=== PATIENT | female | born 1950 | race African-American/Black ===

== ENCOUNTER 2022-05-12 21:57 | Inpatient (IN) | payer MEDICARE, OTHER ==
[~2022-05-12] VITALS: Ht 165.1 cm; Wt 117.5 kg
--- NOTE | 2022-05-12 22:45 | NUR ---
Xray at bedside
--- NOTE | 2022-05-12 22:48 | NUR ---
Lab at bedside
[2022-05-12] MEDS ORDERED: CHOL400T PO (22:55)
[2022-05-12] MEDS ORDERED: SENN-18 PO (22:55)
[2022-05-12] MEDS ORDERED: OXYB5TAB16 PO (22:55)
[2022-05-12] MEDS ORDERED: MAGN400O6 PO (22:55)
[2022-05-12] MEDS ORDERED: MAGN400C PO (22:55)
[2022-05-12] MEDS ORDERED: BENA20TA9 PO (22:55)
[2022-05-12] MEDS ORDERED: ASPI81TA31 PO (22:55)
[2022-05-12] MEDS ORDERED: AMLO-212 PO (22:55)
[2022-05-12] MEDS ORDERED: IBUP-1955 PO (22:55)
[2022-05-12] MEDS ORDERED: BISA-79 PO (22:55)
[2022-05-12] MEDS ORDERED: CALC-494 PO (22:55)
[2022-05-12] MEDS ORDERED: MAG355OR18 PO (22:55)
[2022-05-12] MEDS ORDERED: ASCO500C18 PO (22:55)
[2022-05-12] MEDS ORDERED: POLY17PO4 PO (22:55)
[2022-05-12] MEDS ORDERED: DIVA-78 PO (22:55)
[2022-05-12] MEDS ORDERED: FOLI1TAB94 PO (22:55)
[2022-05-12] MEDS ORDERED: DOCU250C14 PO (22:55)
[2022-05-12] MEDS ORDERED: ZIPR80CA2 PO (22:55)
[2022-05-12] MEDS ORDERED: MULT-1188 PO (22:55)
[2022-05-12] MEDS ORDERED: HALO2TAB PO (22:55)
[2022-05-12] MEDS ORDERED: BISA10SU61 RC (22:55)
[2022-05-12 22:59] LABS: HEMATOCRIT 39.4 % (31.2-41.9); MEAN CORPUSCULAR VOLUME 86.5 fL (75.5-95.3); PLATELET COUNT (AUTO) 166 K/uL (179-408)
[2022-05-12 23:19] LABS: ETHANOL < 3 MG/DL (0-0)
--- NOTE | 2022-05-12 23:23 | NUR ---
Patient placed on bed meyer to collect UA. Sukhjinder YING geoint analyst.
[2022-05-12 23:24] LABS: EOSINOPHILS % (MANUAL) 1 % (0-8); LYMPHOCYTES % (MANUAL) 52 % (20-40); MONOCYTES % (MANUAL) 12 % (2-10); NEUTROPHILS % (MANUAL) 35 % (42-75)
--- NOTE | 2022-05-12 23:27 | NUR ---
Patient will be admitted to MHU bed 141A
[2022-05-12 23:28] LABS: CARBON DIOXIDE 29 mmol/L (21-32); CHLORIDE 103 mmol/L (98-107); CREATININE 0.6 mg/dL (0.6-1.3); GLUCOSE 119 mg/dL (74-106); UREA NITROGEN, BLOOD 6 mg/dL (7-18)
[2022-05-12 23:33] LABS: ALANINE AMINOTRANSFERASE 9 U/L (14-59); ALKALINE PHOSPHATASE 82 U/L (50-136); ASPARTATE AMINOTRANSFERASE 10 U/L (15-37); BILIRUBIN,DIRECT 0.1 mg/dL (0.0-0.2); BILIRUBIN,TOTAL 0.3 mg/dL (0.2-1.0); TOTAL PROTEIN, SERUM 6.1 g/dL (6.4-8.2)
--- NOTE | 2022-05-12 23:40 | NUR ---
Spoke with Crisis team Yajaira for evaluation. States she will be coming to see patient shortly
[2022-05-12 23:41] LABS: THYROID STIMULATING HORMONE 2.363 mIU/mL (0.358-3.740)
[2022-05-12 23:51] LABS: ACETAMINOPHEN < 10.0 ug/mL (10-30)
--- NOTE | 2022-05-12 23:59 | NUR ---
Patient unable to provide urine at this time.
--- NOTE | 2022-05-13 00:35 | NUR ---
UA sent to lab
[2022-05-13 00:45] LABS: *BILIRUBIN,URIN NEGATIVE (NEGATIVE); *BLOOD, URINE NEGATIVE (NEGATIVE); *CLARITY,URINE CLEAR (CLEAR); *COLOR,URINE YELLOW (YELLOW); *KETONES,URINE NEGATIVE (NEGATIVE); *UROBILINOGEN,URINE 0.2 E.U./dl (NORMAL); LEUKOCYTE ESTERASE ,URINE TRACE (NEGATIVE); NITRITE, URINE NEGATIVE (NEGATIVE); UGLUCOSE NEGATIVE (NEGATIVE)
[2022-05-13 00:58] LABS: *AMPHETAMINE, URINE NEGATIVE (NEGATIVE); *CANNABINOID, URINE NEGATIVE (NEGATIVE); *COCCAINE, URINE NEGATIVE (NEGATIVE); *PHENCYCLIDINE SCREEN,URINE NEGATIVE (NEGATIVE)
--- NOTE | 2022-05-13 02:00 | NUR ---
Yajaira from crisis team evaluating patient at bedside.
[2022-05-13 02:08] LABS: BACTERIA,URINE FEW /HPF (NONE SEEN); RBC,URINE NONE SEEN /HPF (0-3); SQUAMOUS EPITHELIAL CELL,UR MODERATE /HPF (NONE SEEN); YEAST,URINE FEW /HPF (NONE SEEN)
--- NOTE | 2022-05-13 03:29 | NUR ---
Patient medically clear per Dr. Soriano
--- NOTE | 2022-05-13 03:31 | NUR ---
Attempted to give report to MHU nurse. RN not avaliable at this time. Waiting for call back.
--- NOTE | 2022-05-13 04:16 | NUR ---
Report given to MHU nurse
--- NOTE | 2022-05-13 04:40 | NUR ---
Patient taken to MHU via gurney with personal belongings. Patient in stable condition no signs of distress. Jojo YING aware of patients arrival.
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
[2022-05-13] MEDS ORDERED: MAG HYDROX/AL HYDROX/SIMETH 30 ML LIQUID UDC PO PRN (05:15)
[2022-05-13] MEDS ORDERED: MAGNESIUM HYDROXIDE 30 ML LIQUID UDC PO PRN (05:15)
[2022-05-13] MEDS ORDERED: ZOLPIDEM 5 MG TABLET PO PRN (05:15)
[2022-05-13] MEDS ORDERED: ACETAMINOPHEN 650 MG SUPP.RECT RC PRN (05:15)
[2022-05-13 06:18] VITALS: BP 138/91
[2022-05-13 07:55] VITALS: BP 109/49
[2022-05-13] MEDS: risperiDONE 2 MG TABLET PO SCH ×2 (11:06→16:44)
[2022-05-13] MEDS: DIVALPROEX 500 MG TABLET.DR PO SCH ×2 (11:06→20:56)
--- NOTE | 2022-05-13 11:30 | NUR ---
Gps/Patient Care Specialist- Alert, oriented x 3 follows simple directions.Cooperative with the P.T. who evaluated patient this am., was able to seat at the edge of bed. Denies visual hallucination, but claimed had auditory hallucinations at time, no plan to hurt herself. Bladder incontinence , needed total assist with her hygiene. Denies any discomfort
[2022-05-13 18:13] VITALS: BP 96/51
[2022-05-13 21:20] VITALS: BP 108/65
--- NOTE | 2022-05-13 21:55 | NUR ---
RECEIVED REPORT FROM JUDY NOHEMI.
--- NOTE | 2022-05-14 06:59 | NUR ---
REPORT GIVEN TO JUDY YING.
[2022-05-14 08:30] VITALS: BP 92/46
[2022-05-14] MEDS: risperiDONE 2 MG TABLET PO SCH ×2 (08:47→17:28)
[2022-05-14] MEDS: DIVALPROEX 500 MG TABLET.DR PO SCH ×2 (08:47→20:43)
[2022-05-14] MEDS ORDERED: FLUCONAZOLE 100 MG TABLET PO ONE (10:45)
[2022-05-14] MEDS ORDERED: BISACODYL 10 MG SUPP.RECT RC PRN (10:45)
[2022-05-14] MEDS ORDERED: MAGNESIUM HYDROXIDE 30 ML LIQUID UDC PO PRN (10:45)
[2022-05-14] MEDS: NITROFURANTOIN/NITROFURAN MAC 100 MG CAPSULE PO SCH ×2 (11:43→20:43)
--- NOTE | 2022-05-14 16:00 | NUR ---
Gps/Community Fundraiser- denies any visual nor auditory hallucinations. Stayed in bed most of the day, compliant with routine medications , making her simples needs known to the staff, interacts well when engaged .
[2022-05-14 16:31] VITALS: BP 91/49
[2022-05-14] MEDS ORDERED: CALCIUM CARBONATE 500 MG TABLET PO SCH (17:00)
[2022-05-14] MEDS ORDERED: CALCIUM CARBONATE 500 MG TAB.CHEW PO SCH (17:00)
[2022-05-14] MEDS: SENNOSIDES 1 TABLET PO SCH (17:28)
[2022-05-14] MEDS: OXYBUTYNIN CHLORIDE 5 MG TABLET PO SCH (17:29)
[2022-05-14] MEDS: CALCIUM CARBONATE 500 MG TABLET PO SCH (17:29)
[2022-05-14] MEDS: PROTEIN SUPPLEMENT (PROSTAT) 30 ML LIQUID PO SCH (17:30)
[2022-05-14 20:25] VITALS: BP 95/52
--- NOTE | 2022-05-15 05:31 | NUR ---
Received patient in bed, alert able to make needs known, no complain of pain, patient cooperative with medications and care, calm at this time, cont to monitor.
[2022-05-15 08:01] VITALS: BP 110/70
[2022-05-15] MEDS ORDERED: CHOLECALCIFEROL 400 UNITS TABLET PO SCH (09:00)
[2022-05-15] MEDS ORDERED: Medication Not On Formulary EA (Ascorbic Acid (Vitamin C) 500 MG) PO SCH (09:00)
[2022-05-15] MEDS: NITROFURANTOIN/NITROFURAN MAC 100 MG CAPSULE PO SCH ×2 (09:02→20:35)
[2022-05-15] MEDS: SENNOSIDES 1 TABLET PO SCH ×2 (09:03→17:14)
[2022-05-15] MEDS: OXYBUTYNIN CHLORIDE 5 MG TABLET PO SCH ×2 (09:03→17:14)
[2022-05-15] MEDS: ASPIRIN 81 MG TAB.CHEW PO SCH (09:03)
[2022-05-15] MEDS: MAGNESIUM OXIDE 400 MG TABLET PO SCH (09:03)
[2022-05-15] MEDS: CHOLECALCIFEROL 1,000 UNIT TABLET PO SCH (09:03)
[2022-05-15] MEDS: DIVALPROEX 500 MG TABLET.DR PO SCH ×2 (09:03→20:35)
[2022-05-15] MEDS: risperiDONE 2 MG TABLET PO SCH ×2 (09:04→17:14)
[2022-05-15] MEDS: FOLIC ACID 1 MG TABLET PO SCH (09:04)
[2022-05-15] MEDS: MULTIVIT, IRON, MIN NO. 8, FA TABLET PO SCH (09:04)
[2022-05-15] MEDS: ASCORBIC ACID 500 MG TABLET PO SCH (09:05)
[2022-05-15] MEDS: PROTEIN SUPPLEMENT (PROSTAT) 30 ML LIQUID PO SCH ×2 (09:05→17:14)
[2022-05-15] MEDS: MIRALAX 17 GM POWD.PACK PO SCH (09:05)
[2022-05-15] MEDS: CALCIUM CARBONATE 500 MG TABLET PO SCH ×2 (09:07→17:14)
--- NOTE | 2022-05-15 14:41 | NUR ---
GPS: Nursing Notes: Thought Disorder: Patient is awake and responding to her name, impaired judgment, redirected during shift, believes that she is leaving today, stated "MY son is coming to pick me up....I am leaving today...", angry affect, social insurance analyst explained patient that she is not leaving today, believes that the psychiatrist never talk to her, forgetful, unable to formulate a viable plan for self care, continue to monitor for safety, continue with treatment plan.
[2022-05-15 16:32] VITALS: BP 98/58
[2022-05-15 19:53] VITALS: BP 110/60
[2022-05-15] MEDS: LORAZEPAM 1 MG TABLET PO PRN (20:35)
--- NOTE | 2022-05-16 03:27 | NUR ---
Received patient at the start of the shift, talking to herself and responding to internal stimuli. The patient verbalized to this ad writer that " I have this person named Clementine inside me. She is always keeping me from talking to my family by taking my phone away. She has it right now. " The patient was anxious and paranoid, also confused about how long she has been in this hospital. Reassurance and reorientation provided. Total assistance 2-3 people needed with changing this patient and providing PM care. Despite encouragement, the patient would not assist with repositioning and turning. This ad writer helped the patient with calling her daughter. A Mepilex was applied to the patients coccyx as well as z guard, after cleaning her up as needed. Safety Stratiges are in place and continuing to provided assist with ADL, too monitor for anxiety and disorientation, and prevent any further skin breakdown from what was present upon admission.
[2022-05-16 08:00] VITALS: BP 113/66
[2022-05-16] MEDS: SENNOSIDES 1 TABLET PO SCH ×2 (09:26→16:46)
[2022-05-16] MEDS: CHOLECALCIFEROL 1,000 UNIT TABLET PO SCH (09:26)
[2022-05-16] MEDS: ASPIRIN 81 MG TAB.CHEW PO SCH (09:26)
[2022-05-16] MEDS: MIRALAX 17 GM POWD.PACK PO SCH (09:26)
[2022-05-16] MEDS: MAGNESIUM OXIDE 400 MG TABLET PO SCH (09:26)
[2022-05-16] MEDS: NITROFURANTOIN/NITROFURAN MAC 100 MG CAPSULE PO SCH ×2 (09:26→20:35)
[2022-05-16] MEDS: MULTIVIT, IRON, MIN NO. 8, FA TABLET PO SCH (09:26)
[2022-05-16] MEDS: DIVALPROEX 500 MG TABLET.DR PO SCH ×2 (09:27→20:35)
[2022-05-16] MEDS: ASCORBIC ACID 500 MG TABLET PO SCH (09:27)
[2022-05-16] MEDS: PROTEIN SUPPLEMENT (PROSTAT) 30 ML LIQUID PO SCH ×2 (09:27→16:46)
[2022-05-16] MEDS: CALCIUM CARBONATE 500 MG TABLET PO SCH ×2 (09:27→16:47)
[2022-05-16] MEDS: OXYBUTYNIN CHLORIDE 5 MG TABLET PO SCH ×2 (09:27→16:46)
[2022-05-16] MEDS: FOLIC ACID 1 MG TABLET PO SCH (09:27)
[2022-05-16] MEDS: risperiDONE 2 MG TABLET PO SCH ×2 (10:04→16:46)
[2022-05-16] MEDS: REMEDY ESSENTIAL ZINC PASTE 113 GM TOP SCH ×2 (11:42→20:36)
--- NOTE | 2022-05-16 15:30 | NUR ---
LANCE Initial Discharge Note: Pt currently resides at [facility] ([phone]) located at [address] [place] [address]. Per pt's daughter, Rkiki ([phone]), she would like the pt to return there upon discharge. If pt is not welcome back upon discharge, Rikki is agreeable to additional snf's recommended by the psychiatrist. LANCE will continue to work with pt, her daughter, Rikki, her son, Tate ([phone]), and to ensure a safe and proper discharge plan.
--- NOTE | 2022-05-16 15:31 | NUR ---
SW Family Contact: Per pt's daughter, Rikki ([phone]), she would like the pt to return there upon discharge. If pt is not welcome back upon discharge, Rikki is agreeable to additional snf's recommended by the psychiatrist.
--- NOTE | 2022-05-16 15:59 | NUR ---
Firearms Report: Floriculture Teacher completed and submitted a [employer] firearms report for 5150 grave disability certifications. A copy of report has been placed in patient chart.
[2022-05-16 16:33] VITALS: BP 116/62
--- NOTE | 2022-05-16 17:24 | NUR ---
GPS: Nursing Notes: Thought Disorder: Patient is awake and responding to her name, cooperative with nursing care, compliant with her medications, having AH, stated "Yes, Clementine talks to me... She follows me everywhere sometime.... She bothers me at night..", when asked who is Clementine? stated "She is everything... ", unable to formulate a viable plan for self care, A/Ox3, poor insight, impaired judgment, continue to monitor for safety, total care, but able to eat by self, continue with treatment plan.
[2022-05-16 20:01] VITALS: BP 108/70
[2022-05-16] MEDS: LORAZEPAM 1 MG TABLET PO PRN (20:35)
--- NOTE | 2022-05-17 04:46 | NUR ---
There are not many changes from the previous manager night. The patient continues to not help the staff with her ADLs and care, she needs to be turned and repositioned frequently and is incontinent. Monitoring of skin breakdown is ongoing. The patient is pleasant but does not show any insight to the possible complications of being completely immobile. Encouragement to move and get out of bed has not been effective. Some paranoia is noted and the patient has been responding to internal stimuli during the evening. Safety Stratiges remain in place at this time, staff is continuing with the plan of care .
[2022-05-17 08:00] VITALS: BP 127/75
[2022-05-17] MEDS: CALCIUM CARBONATE 500 MG TABLET PO SCH ×2 (10:20→17:48)
[2022-05-17] MEDS: CHOLECALCIFEROL 1,000 UNIT TABLET PO SCH (10:20)
[2022-05-17] MEDS: ASCORBIC ACID 500 MG TABLET PO SCH (10:21)
[2022-05-17] MEDS: risperiDONE 2 MG TABLET PO SCH ×2 (10:21→17:44)
[2022-05-17] MEDS: SENNOSIDES 1 TABLET PO SCH ×2 (10:23→17:48)
[2022-05-17] MEDS: ASPIRIN 81 MG TAB.CHEW PO SCH (10:23)
[2022-05-17] MEDS: REMEDY ESSENTIAL ZINC PASTE 113 GM TOP SCH ×2 (10:24→20:55)
[2022-05-17] MEDS: DIVALPROEX 500 MG TABLET.DR PO SCH ×2 (10:28→20:55)
[2022-05-17] MEDS: MIRALAX 17 GM POWD.PACK PO SCH (10:28)
[2022-05-17] MEDS: PROTEIN SUPPLEMENT (PROSTAT) 30 ML LIQUID PO SCH ×2 (10:28→17:00)
[2022-05-17] MEDS: OXYBUTYNIN CHLORIDE 5 MG TABLET PO SCH ×2 (10:28→17:43)
[2022-05-17] MEDS: FOLIC ACID 1 MG TABLET PO SCH (10:31)
[2022-05-17] MEDS: MAGNESIUM OXIDE 400 MG TABLET PO SCH (10:32)
[2022-05-17] MEDS: MULTIVIT, IRON, MIN NO. 8, FA TABLET PO SCH (10:32)
[2022-05-17] MEDS: NITROFURANTOIN/NITROFURAN MAC 100 MG CAPSULE PO SCH (10:33)
[2022-05-17 16:00] VITALS: BP 107/56
[2022-05-17 20:16] VITALS: BP 90/50
--- NOTE | 2022-05-18 06:19 | NUR ---
GPS NOTES: Patient remains in bed, she is total assistance with ADL's. She is pleasant, Denies AH/VH. Med compliant, snacks and fluids provided, with good appetite. She sleeping mostly during shift. Danica care provided. No distress noted. All safety precautions in placed.
--- NOTE | 2022-05-18 06:46 | NUR ---
Wound nurse came and assessed patient buttocks area. Skin is intact,no DTI present.
--- NOTE | 2022-05-18 06:48 | NUR ---
WOUND CARE CONSULT: PT PRESENTS WITH SCARRING TO SACRAL AREA/GLUTEAL CREASE, PRESENT ON ADMISSION. PT IS INCONTINENT. RECOMMENDATIONS MADE FOR SKIN PROTECTION. DISCUSSED WITH NURSING STAFF. MD IN AGREEMENT WITH PLAN OF CARE.
[2022-05-18 08:48] VITALS: BP 107/77
[2022-05-18] MEDS: ASPIRIN 81 MG TAB.CHEW PO SCH (09:19)
[2022-05-18] MEDS: DIVALPROEX 500 MG TABLET.DR PO SCH ×2 (09:19→20:39)
[2022-05-18] MEDS: SENNOSIDES 1 TABLET PO SCH ×2 (09:20→17:14)
[2022-05-18] MEDS: OXYBUTYNIN CHLORIDE 5 MG TABLET PO SCH ×2 (09:20→17:14)
[2022-05-18] MEDS: CHOLECALCIFEROL 1,000 UNIT TABLET PO SCH (09:20)
[2022-05-18] MEDS: FOLIC ACID 1 MG TABLET PO SCH (09:20)
[2022-05-18] MEDS: ASCORBIC ACID 500 MG TABLET PO SCH (09:20)
[2022-05-18] MEDS: risperiDONE 2 MG TABLET PO SCH ×2 (09:21→17:13)
[2022-05-18] MEDS: MAGNESIUM OXIDE 400 MG TABLET PO SCH (09:21)
[2022-05-18] MEDS: MULTIVIT, IRON, MIN NO. 8, FA TABLET PO SCH (09:21)
[2022-05-18] MEDS: CALCIUM CARBONATE 500 MG TABLET PO SCH ×2 (09:22→17:14)
[2022-05-18] MEDS: MIRALAX 17 GM POWD.PACK PO SCH (09:22)
[2022-05-18] MEDS: PROTEIN SUPPLEMENT (PROSTAT) 30 ML LIQUID PO SCH (09:23)
[2022-05-18] MEDS: REMEDY ESSENTIAL ZINC PASTE 113 GM TOP SCH ×2 (09:24→20:39)
--- NOTE | 2022-05-18 11:40 | NUR ---
Gps/Petroleum Plant Operator- Skin very dry, flaky, lotion applied as requested. Compliant with routine medications. Neede 2 staff with bed mobility and repositioning in bed. Encouraged to feed self, heels floated , had beeds cooperative, pleasant with the staff providing her care
--- NOTE | 2022-05-18 14:32 | NUR ---
Patient had [address] today, and diving judge Sis Cain gave probable cause for GD only.
[2022-05-18 15:47] VITALS: BP 115/72
--- NOTE | 2022-05-18 18:34 | NUR ---
Gps/Competitive Athlete- Pm care rendered , incontinent of urine, good xuan-care rendered, z-guard cream applied to abdominal folds and groin area , repositioned to her left side heels floated.. Complained of occ. dry coughing.
[2022-05-18] MEDS: LORAZEPAM 1 MG TABLET PO PRN (20:39)
[2022-05-18 21:13] VITALS: BP 106/64
--- NOTE | 2022-05-19 02:55 | NUR ---
Received patient at the start of the shift requesting for the phone. Assistance provided in dialing the number, but when the patient was handed the phone, she would not put it to her ear, only look at it. The patient was delusional making statements " I need to talk to my kids, They do not know where I am. They are not answering my phone calls cause they were told not too by Clementine". At night, the patient is confused and has a hard time remembering the events of the day or the situation. Reassurance and reorientation is ongoing. Reality based conversation along with active listening provided. Frequent turning, repositioning and xuan care is being done to prevent skin breakdown. Still ,the patient does not assist with her care or try to move in the bed on her own. Safety Stratiges are in place. Minimum 2 people needed when doing ADLS. Continuing to monitor the patients paranoia, confusion, compliance and skin. No acute distress at this time.
[2022-05-19 07:10] VITALS: BP 108/68
[2022-05-19] MEDS: ASPIRIN 81 MG TAB.CHEW PO SCH (09:12)
[2022-05-19] MEDS: MULTIVIT, IRON, MIN NO. 8, FA TABLET PO SCH (09:12)
[2022-05-19] MEDS: DIVALPROEX 500 MG TABLET.DR PO SCH ×2 (09:12→20:58)
[2022-05-19] MEDS: FOLIC ACID 1 MG TABLET PO SCH (09:12)
[2022-05-19] MEDS: CALCIUM CARBONATE 500 MG TABLET PO SCH ×2 (09:12→17:46)
[2022-05-19] MEDS: SENNOSIDES 1 TABLET PO SCH ×2 (09:12→17:43)
[2022-05-19] MEDS: OXYBUTYNIN CHLORIDE 5 MG TABLET PO SCH ×2 (09:13→17:42)
[2022-05-19] MEDS: risperiDONE 2 MG TABLET PO SCH ×2 (09:13→17:43)
[2022-05-19] MEDS: MIRALAX 17 GM POWD.PACK PO SCH (09:14)
[2022-05-19] MEDS: CHOLECALCIFEROL 1,000 UNIT TABLET PO SCH (09:14)
[2022-05-19] MEDS: MAGNESIUM OXIDE 400 MG TABLET PO SCH (09:14)
[2022-05-19] MEDS: REMEDY ESSENTIAL ZINC PASTE 113 GM TOP SCH ×2 (09:15→20:58)
[2022-05-19] MEDS: ASCORBIC ACID 500 MG TABLET PO SCH (09:16)
[2022-05-19] MEDS: PROTEIN SUPPLEMENT (PROSTAT) 30 ML LIQUID PO SCH (09:17)
[2022-05-19 16:31] VITALS: BP 90/63
[2022-05-19] MEDS: levoFLOXacin 250 MG TABLET PO SCH (17:48)
[2022-05-19 20:28] VITALS: BP 91/48
[2022-05-20 08:04] VITALS: BP 91/60
[2022-05-20] MEDS: FOLIC ACID 1 MG TABLET PO SCH (08:35)
[2022-05-20] MEDS: MULTIVIT, IRON, MIN NO. 8, FA TABLET PO SCH (08:35)
[2022-05-20] MEDS: SENNOSIDES 1 TABLET PO SCH ×2 (08:35→16:26)
[2022-05-20] MEDS: ASCORBIC ACID 500 MG TABLET PO SCH (08:35)
[2022-05-20] MEDS: CHOLECALCIFEROL 1,000 UNIT TABLET PO SCH (08:35)
[2022-05-20] MEDS: OXYBUTYNIN CHLORIDE 5 MG TABLET PO SCH ×2 (08:35→16:26)
[2022-05-20] MEDS: CALCIUM CARBONATE 500 MG TABLET PO SCH ×2 (08:35→16:27)
[2022-05-20] MEDS: DIVALPROEX 500 MG TABLET.DR PO SCH ×2 (08:35→20:17)
[2022-05-20] MEDS: ASPIRIN 81 MG TAB.CHEW PO SCH (08:35)
[2022-05-20] MEDS: risperiDONE 2 MG TABLET PO SCH ×2 (08:36→16:26)
[2022-05-20] MEDS: MIRALAX 17 GM POWD.PACK PO SCH (08:36)
[2022-05-20] MEDS: MAGNESIUM OXIDE 400 MG TABLET PO SCH (08:37)
[2022-05-20] MEDS: REMEDY ESSENTIAL ZINC PASTE 113 GM TOP SCH ×2 (08:38→20:18)
[2022-05-20] MEDS: PROTEIN SUPPLEMENT (PROSTAT) 30 ML LIQUID PO SCH (08:38)
[2022-05-20] MEDS: ACETAMINOPHEN 325 MG TABLET PO PRN (13:35)
--- NOTE | 2022-05-20 16:00 | NUR ---
GPS: Nursing Notes: Thought Disorder: Patient is awake and responding to her name, resistant with nursing care, believes that her son is coming to pick her up, redirected during shift, compliant with her medications, unable to formulate a viable plan for self care, total care, stated, "Clementine talks to me...Clementine follows me everywhere..", continue to monitor for safety, believes that she is getting better, continue with treatment plan.
[2022-05-20 16:04] VITALS: BP 98/68
[2022-05-20] MEDS: levoFLOXacin 250 MG TABLET PO SCH (16:26)
[2022-05-20 20:06] VITALS: BP 92/61
[2022-05-21 08:11] VITALS: BP 96/57
[2022-05-21] MEDS: MAGNESIUM OXIDE 400 MG TABLET PO SCH (08:44)
[2022-05-21] MEDS: FOLIC ACID 1 MG TABLET PO SCH (08:44)
[2022-05-21] MEDS: ASCORBIC ACID 500 MG TABLET PO SCH (08:44)
[2022-05-21] MEDS: DIVALPROEX 500 MG TABLET.DR PO SCH ×2 (08:44→20:11)
[2022-05-21] MEDS: risperiDONE 2 MG TABLET PO SCH ×2 (08:44→17:01)
[2022-05-21] MEDS: SENNOSIDES 1 TABLET PO SCH ×2 (08:44→17:01)
[2022-05-21] MEDS: OXYBUTYNIN CHLORIDE 5 MG TABLET PO SCH ×2 (08:45→17:01)
[2022-05-21] MEDS: ASPIRIN 81 MG TAB.CHEW PO SCH (08:45)
[2022-05-21] MEDS: REMEDY ESSENTIAL ZINC PASTE 113 GM TOP SCH ×2 (08:45→20:12)
[2022-05-21] MEDS: MIRALAX 17 GM POWD.PACK PO SCH (08:45)
[2022-05-21] MEDS: MULTIVIT, IRON, MIN NO. 8, FA TABLET PO SCH (08:45)
[2022-05-21] MEDS: CHOLECALCIFEROL 1,000 UNIT TABLET PO SCH (08:45)
[2022-05-21] MEDS: CALCIUM CARBONATE 500 MG TABLET PO SCH ×2 (08:45→17:01)
[2022-05-21] MEDS: PROTEIN SUPPLEMENT (PROSTAT) 30 ML LIQUID PO SCH (08:46)
--- NOTE | 2022-05-21 13:51 | NUR ---
GPS: Nursing Notes: Thought Disorder: Patient is awake and responding to her name, cooperative with nursing care, compliant with her medications, stated "Sometimes, Clementine talks to her.. She told her that she is in love with her .." Redirected and reoriented during shift, unable to formulate a viable plan for self care, on fall precautions, continue to monitor for safety, continue with treatment plan.
[2022-05-21 16:17] VITALS: BP 123/71
[2022-05-21] MEDS: levoFLOXacin 250 MG TABLET PO SCH (17:01)
[2022-05-21 20:10] VITALS: BP 97/57
--- NOTE | 2022-05-21 20:35 | NUR ---
Received patient in bed, no complain of pain, patient calm and cooperative with medication. Patient requires total assist with adl's kept clean and dry, tx done sacral redness, turn and reposition, cont to monitor.
[2022-05-22 08:21] VITALS: BP 108/66
[2022-05-22] MEDS: MAGNESIUM OXIDE 400 MG TABLET PO SCH (09:28)
[2022-05-22] MEDS: CHOLECALCIFEROL 1,000 UNIT TABLET PO SCH (09:28)
[2022-05-22] MEDS: DIVALPROEX 500 MG TABLET.DR PO SCH ×2 (09:28→22:29)
[2022-05-22] MEDS: OXYBUTYNIN CHLORIDE 5 MG TABLET PO SCH ×2 (09:28→17:40)
[2022-05-22] MEDS: MULTIVIT, IRON, MIN NO. 8, FA TABLET PO SCH (09:28)
[2022-05-22] MEDS: SENNOSIDES 1 TABLET PO SCH ×2 (09:28→17:40)
[2022-05-22] MEDS: ASCORBIC ACID 500 MG TABLET PO SCH (09:29)
[2022-05-22] MEDS: risperiDONE 2 MG TABLET PO SCH ×2 (09:29→17:40)
[2022-05-22] MEDS: PROTEIN SUPPLEMENT (PROSTAT) 30 ML LIQUID PO SCH (09:29)
[2022-05-22] MEDS: ASPIRIN 81 MG TAB.CHEW PO SCH (09:29)
[2022-05-22] MEDS: MIRALAX 17 GM POWD.PACK PO SCH (09:30)
[2022-05-22] MEDS: FOLIC ACID 1 MG TABLET PO SCH (09:30)
[2022-05-22] MEDS: CALCIUM CARBONATE 500 MG TABLET PO SCH ×2 (09:30→17:40)
[2022-05-22] MEDS: REMEDY ESSENTIAL ZINC PASTE 113 GM TOP SCH ×2 (09:31→21:00)
--- NOTE | 2022-05-22 09:36 | NUR ---
LANCE Family Contact: Pt currently resides at [facility] ([phone]) located at [address] [place] [address]. Per pt's daughter, Rikki ([phone]), she would like the pt to transfer to a different facility to continue treatment and rehab. SW will refer pt to [facility] located at [address] [place] [address] ([phone]) per Dr. Martinez. Rikki is agreeable.
[2022-05-22 16:46] VITALS: BP 116/65
[2022-05-22] MEDS: levoFLOXacin 250 MG TABLET PO SCH (17:40)
[2022-05-22 20:25] VITALS: BP 105/70
--- NOTE | 2022-05-23 07:15 | NUR ---
GPS: Received patient in her room, lying in bed, denies pain or discomfort, Denies SI/HI/VH/AH, Patient currently free from pain or any discomforts. Emotional support provided. Fall and safety precautions implemented.
--- NOTE | 2022-05-23 07:35 | NUR ---
Patient is safe, compliant with med. No agitation, or aggressive behavior observed. She stayed in her room due to her condition. She is non ambulatory. Will continue to monitor for safety.
[2022-05-23 08:06] VITALS: BP 109/70
[2022-05-23] MEDS: OXYBUTYNIN CHLORIDE 5 MG TABLET PO SCH ×2 (09:17→16:48)
[2022-05-23] MEDS: ASPIRIN 81 MG TAB.CHEW PO SCH (09:17)
[2022-05-23] MEDS: DIVALPROEX 500 MG TABLET.DR PO SCH ×2 (09:17→20:18)
[2022-05-23] MEDS: ASCORBIC ACID 500 MG TABLET PO SCH (09:17)
[2022-05-23] MEDS: SENNOSIDES 1 TABLET PO SCH ×2 (09:17→16:48)
[2022-05-23] MEDS: MAGNESIUM OXIDE 400 MG TABLET PO SCH (09:17)
[2022-05-23] MEDS: MIRALAX 17 GM POWD.PACK PO SCH (09:17)
[2022-05-23] MEDS: MULTIVIT, IRON, MIN NO. 8, FA TABLET PO SCH (09:17)
[2022-05-23] MEDS: FOLIC ACID 1 MG TABLET PO SCH (09:17)
[2022-05-23] MEDS: CHOLECALCIFEROL 1,000 UNIT TABLET PO SCH (09:18)
[2022-05-23] MEDS: risperiDONE 2 MG TABLET PO SCH ×2 (09:18→16:49)
[2022-05-23] MEDS: PROTEIN SUPPLEMENT (PROSTAT) 30 ML LIQUID PO SCH (09:19)
[2022-05-23] MEDS: CALCIUM CARBONATE 500 MG TABLET PO SCH ×2 (09:19→16:51)
[2022-05-23] MEDS: REMEDY ESSENTIAL ZINC PASTE 113 GM TOP SCH ×2 (09:21→20:43)
--- NOTE | 2022-05-23 11:02 | NUR ---
GPS: patient cooperative with daily care, denies pain or discomforts, medication compliant.
[2022-05-23] MEDS: ACETAMINOPHEN 325 MG TABLET PO PRN (14:26)
[2022-05-23 16:04] VITALS: BP 111/66
--- NOTE | 2022-05-23 16:26 | NUR ---
LANCE Family Contact: SW spoke with pt's daughter, Rikki ([phone]) and son, Ko ([phone]) regarding pts acceptance to [facility] ([phone]) located at [address] [place] [address] for discharge tomorrow. Family, pt and MD are aware.
[2022-05-23] MEDS: levoFLOXacin 250 MG TABLET PO SCH (16:51)
--- NOTE | 2022-05-23 18:13 | NUR ---
GPS: Patient cooperative with daily care, denies SI/HI/VH/AH, aware of discharge tomorrow. Spoke to daughter Rikki. Patient is currently free from pain or any discomfort. Emotional support provided. Fall and safety precautions implemented.
[2022-05-23 19:51] VITALS: BP 155/84
--- NOTE | 2022-05-24 04:47 | NUR ---
gps notes: Patient is pleasant, calm and quiet. Behavioral improvement is noted, no aggressive behavior manifested. Denies SI/VH/AH. Med-compliant with no issues. Snacks and fluids provided with good appetite, consumes 100%. Good pericare given, skin maintenance applied. Patient remains compliant with treatment plans. All safety precaution in placed.
[2022-05-24 08:12] VITALS: BP 107/72
[2022-05-24] MEDS: CHOLECALCIFEROL 1,000 UNIT TABLET PO SCH (09:52)
[2022-05-24] MEDS: ASCORBIC ACID 500 MG TABLET PO SCH (09:52)
[2022-05-24] MEDS: DIVALPROEX 500 MG TABLET.DR PO SCH (09:52)
[2022-05-24] MEDS: risperiDONE 2 MG TABLET PO SCH (09:52)
[2022-05-24] MEDS: MAGNESIUM OXIDE 400 MG TABLET PO SCH (09:53)
[2022-05-24] MEDS: FOLIC ACID 1 MG TABLET PO SCH (09:53)
[2022-05-24] MEDS: SENNOSIDES 1 TABLET PO SCH (09:53)
[2022-05-24] MEDS: REMEDY ESSENTIAL ZINC PASTE 113 GM TOP SCH (09:54)
[2022-05-24] MEDS: OXYBUTYNIN CHLORIDE 5 MG TABLET PO SCH (09:56)
[2022-05-24] MEDS: CALCIUM CARBONATE 500 MG TABLET PO SCH (09:56)
[2022-05-24] MEDS: MULTIVIT, IRON, MIN NO. 8, FA TABLET PO SCH (09:56)
[2022-05-24] MEDS: MIRALAX 17 GM POWD.PACK PO SCH (09:59)
[2022-05-24] MEDS: ASPIRIN 81 MG TAB.CHEW PO SCH (09:59)
[2022-05-24] MEDS: PROTEIN SUPPLEMENT (PROSTAT) 30 ML LIQUID PO SCH (10:00)
--- NOTE | 2022-05-24 11:19 | NUR ---
LANCE Discharge Screener: LANCE completed a discharge screener.
--- NOTE | 2022-05-24 11:23 | NUR ---
LANCE Discharge Note: Pt will be discharged to [facility] ([phone]) located at [address] [place] [address] via ambulance transportation at 1PM. LANCE spoke with cooperative education director, Dago ([phone]) at the facility who states they are ready to accept the patient today. Pt is aware and agreeable with discharge plan. LANCE spoke with pts daughter, Rikki ([phone]) and son, Ko ([phone]) who are aware and agreeable with the discharge plan. Pt is alert and oriented x3, is unable to plan for self-care at this time. However, pt is willing to accept care at SNF. Pt denies any suicidal or homicidal ideation. Pt will follow-up at the facility with Psychiatrist, Dr. Garrett and Educational Therapist, Dr. Tramaine Sanchez. Pt presents with calm mood and congruent affect. PHARMACY: [facility] ([phone]).
--- NOTE | 2022-05-24 13:20 | NUR ---
pt is being discharged to [facility] via ambulance. Pt is aware and willing to go. No agitation, pt is calm. vs are stable, all belongings returned including valuables (cell phone). Report was given to Delores at the facility.
== END 2022-05-24 13:30 | DRG 885 ==
LOC: ER 21:57 → GPS 05-13 03:38
PROVIDERS: ADMIT Psychiatry & Neurology Psychiatry; ATTEND Internal Medicine
DX: F20.0 Paranoid schizophrenia (principal); N39.0 Urinary tract infection, site not specified; E44.0 Moderate protein-calorie malnutrition; Z68.41 Body mass index [BMI] 40.0-44.9, adult; G40.909 Epilepsy, unspecified, not intractable, without status epilepticus; D69.6 Thrombocytopenia, unspecified; E88.09 Other disorders of plasma-protein metabolism, not elsewhere classified; I10 Essential (primary) hypertension; K59.00 Constipation, unspecified; N32.81 Overactive bladder; Z20.822 Contact with and (suspected) exposure to COVID-19; Z79.899 Other long term (current) drug therapy; Z86.19 Personal history of other infectious and parasitic diseases; Z87.440 Personal history of urinary (tract) infections; B96.5 Pseudomonas (aeruginosa) (mallei) (pseudomallei) as the cause of diseases classified elsewhere; F29 Unspecified psychosis not due to a substance or known physiological condition
CPT/HCPCS: 36415; 70030-TC; 71045; 84443; 85025; 93005; A4663; A6209; G0480